=== PATIENT | male | born 1950 | race Caucasian/White ===

== ENCOUNTER 2017-06-15 21:01 | Emergency (ER) | payer MEDICARE, SELFPAY ==
[2017-06-15 21:25] VITALS: BP 164/98; PULSE 87; RESP 20; TEMP 37; O2SAT 97; BMI 24.4
--- NOTE | 2017-06-15 21:34 | CT_ITS ---
CT lumbar spine wo con COMPARISON: None HISTORY: Low back pain TECHNIQUE: Multiple axial scans of the lumbar spine were obtained. Sagittal and coronal reformats were evaluated as well. FINDINGS: There is normal curvature. There is a grade 1 and possibly grade to spondylolisthesis of L5 on S1. There is a vacuum phenomenon of the L5-S1 disc and a small vacuum phenomenon of the L3-4 disc. There are defects of the pars interarticularis bilaterally at L5-S1. There are hypertrophic facet changes at L4-5 and L5-S1. There is mild spurring the SI joints inferiorly bilaterally. There is hypertrophy of the ligamentum flavum at the L3-4 level. There is prominent anterior osteophytic spurring at the L1-2, L2-3 and L3-4 levels. IMPRESSION: Prominent multilevel degenerative changes as described above. Along with first-degree almost second-degree spondylolisthesis of L5 on S1. I basically agree with the [facility] report
--- NOTE | 2017-06-15 23:11 | [facility].EDGENADL ---
ED Disposition Clinical Impression: Sciatica Qualifiers: Laterality: right Qualified Code(s): M54.31 - Sciatica, right side Contusion of right hip Qualifiers: Encounter type: initial encounter Qualified Code(s): S70.01XA - Contusion of right hip, initial encounter Disposition: Home, Self-Care Condition on Discharge: Good Instructions: DI for Back Pain With Sciatica, DI for Contusion Additional Instructions: Additional instructions for BACK PAIN: See your physician as soon as possible for further evaluation. Return immediately if back pain becomes intolerable, or if fever, numbness or weakness of your legs, loss of control of your bowels or bladder. Prescriptions: predniSONE [Prednisone 10mg Tab Dose-Pack] 10 mg PO DAILY #42 pack Referrals: Lucinda Wyman MD [Primary Care Provider] - - Critical Care Critical Care Time: No Attestation: On 06/15/17, the high probability of a clinically significant, sudden or life threatening deterioration of the following system(s) required my full and direct attention, intervention and personal management. The time I documented below is in addition to time spent performing reported procedures but includes the following listed in this critical care notation. Medical Decision Making - Manuel Inquiry Pt receiving controlled substance: Yes Manuel was queried for this patient: Yes Reference #:: [id number] Risks and benefits of using a controlled substance: were not discussed with pt by me Comment: 9 rxs. last rx 20 percocet on 06/11/17. Vital Signs: 06/15/17 21:25 06/15/17 23:33 Temperature 98.6 F Temperature Source Oral Pulse Rate [Right Radial] 87 80 Respiratory Rate 20 Blood Pressure [Right Arm] 164/98 150/91 Blood Pressure Mean [Right Arm] 120 110 Blood Pressure Source [Right Arm] Automatic Cuff Blood Pressure Position [Right Arm] Sitting 02 Sat by Pulse Oximetry 97 98 Orders (Tests/Meds): ED MEDICATIONS Discontinued Medications Generic Name Dose Route Start Last Admin Trade Name Freq PRN Reason Stop Dose Admin Ketorolac Tromethamine 60 mg 06/15/17 21:40 06/15/17 21:43 Toradol 60mg/2ml Vial IM 06/15/17 21:41 60 mg ONCE ONE Administration Morphine Sulfate 10 mg 06/16/17 00:32 Morphine 2mg/2ml Syringe IM 06/16/17 00:33 ONCE ONE Ondansetron HCl 4 mg 06/16/17 00:31 Zofran 4mg/2ml Vial IM 06/16/17 00:32 ONCE ONE ORDERS Category Date Time Status CT lumbar spine wo con Stat Cat Scan 06/15/17 21:34 Taken Hip XR right minimum 2 views [XR hip RT 2-3V w/pelvis] Exams 06/16/17 00:29 Taken Stat - Radiology Data #1 Image(s): Hip Image Reviewed: Yes I reviewed the patient's radiology image Degenerative changes, no fracture or dislocation seen - CT Data CT Scan: L-Spine Time Received: 23:[address] Reviewed: Yes: I have viewed the radiologist's interpretation Findings Narrative: CT scan interpreted by [facility] radiologist. Faxed report received and reviewed: No acute findings are detected. Bilateral ligamentum flavum hypertrophy at L3-4 causes associated moderate spinal canal stenosis. L5/S1 spondylolisthesis. 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 Loose body measuring 1.1 cm from the associated severe hypertrophic facet arthropathy at L5-S1 is noted within the right lateral spinal canal. No acute fracture. Incidental discovery of a 2.1 mm nonobstructing calculus upper right renal pole. General Adult HPI - General Chief complaint: Back Pain/Injury Stated complaint: Lower back and leg pain Time Seen by Provider: 06/16/17 00:10 Mode of Arrival: Ambulatory Limitations: No Limitations Description of Symptoms (Recalled from ER Triage Doc. by RN): right sided sciatic pain, pt sees pain management for back degenerative pain. pt gets injections for pain. pt states that he fell 10 days ago and had a methyline blue injection on 06/04/17 and his p
[2017-06-15 23:33] VITALS: BP 150/91; PULSE 80; O2SAT 98
--- NOTE | 2017-06-16 00:29 | XR_ITS ---
XR hip RT 2-3V w/pelvis COMPARISON: None HISTORY: Pelvis and right hip pain after a fall TECHNIQUE: AP pelvis, cone-down AP and frog views right hip FINDINGS: The iliac bones and. Bones appear intact. The SI joints are normal. There is asymmetrical joint space narrowing of the right hip. There is spurring of the acetabulum and there is a moderate sized bone fragment adjacent to the acetabular spur projecting over the lateral aspect of the femoral head. There is no acute fracture seen. The left hip is intact and there is also minimal spurring of the left acetabulum. IMPRESSION: The drain changes of both hips more prominent right side than left pelvis and hips negative for fracture
[2017-06-16 01:39] VITALS: BP 139/94; PULSE 85; RESP 16; TEMP 36.7; O2SAT 97
== END 2017-06-16 01:39 | disposition home or self-care (01) ==
PROVIDERS: Emergency Provider Emergency Medicine; PCP Family Medicine
DX: M54.31 Sciatica, right side (principal); S70.01XA Contusion of right hip, initial encounter; W06.XXXA Fall from bed, initial encounter; Y92.013 Bedroom of single-family (private) house as the place of occurrence of the external cause; F17.210 Nicotine dependence, cigarettes, uncomplicated
CPT/HCPCS: 72131; 73502; 96372; 99283; J2405